=== PATIENT | male | born 1995 | race African-American/Black ===

== ENCOUNTER 2020-07-15 17:44 | Emergency (ER) | payer SELFPAY ==
[~2020-07-15] VITALS: Ht 182.9 cm; Wt 85.0 kg
[~2020-07-15 17:44] MED LIST: IBUP-777
[2020-07-15 17:47] VITALS: BP 124/59
== END 2020-07-15 20:02 | disposition home or self-care (01) ==
LOC: ER 17:44
DX: M79.644 Pain in right finger(s) (principal); F12.90 Cannabis use, unspecified, uncomplicated
CPT/HCPCS: 73130; 99283